=== PATIENT | female | born 2000 | race Caucasian/White ===

== ENCOUNTER 2023-07-29 13:05 | Emergency (ER) | payer BC ==
[2023-07-29] MEDS ORDERED: Dexamethasone 10 MG/ML VIAL ONE (13:24)
== END 2023-07-29 14:17 | disposition home or self-care (01) ==
LOC: CSHERS 13:05
DX: J03.90 Acute tonsillitis, unspecified (principal)
CPT/HCPCS: 99282; J1100

== ENCOUNTER 2024-04-10 20:46 | Emergency (ER) | payer BC ==
[2024-04-11] MEDS ORDERED: Dexamethasone 10 MG/ML VIAL ONE (00:14)
[2024-04-11] MEDS ORDERED: Ibuprofen 200 MG TAB ONE (00:15)
== END 2024-04-11 00:50 | disposition home or self-care (01) ==
LOC: CSHERS 20:46
DX: J02.9 Acute pharyngitis, unspecified (principal); B97.89 Other viral agents as the cause of diseases classified elsewhere; Z55.0 Illiteracy and low-level literacy
CPT/HCPCS: 87081; 87428; 87430; 99283; J1100